=== PATIENT | female | born 1985 | race African-American/Black ===

== ENCOUNTER 2020-12-28 03:04 | Emergency (ER) | payer MEDICAID ==
[~2020-12-28] VITALS: Ht 170.2 cm; Wt 87.0 kg
[2020-12-28] MEDS ORDERED: FAMOTIDINE 20MG/2ML VIAL IV STA (03:20)
[2020-12-28] MEDS ORDERED: MAGNESIUM/ALUMINUM HYDROXIDE/SIMETHICONE 30ML UDC PO STA (03:20)
[2020-12-28] MEDS ORDERED: VISCOUS LIDOCAINE 2% 15 ML UDC PO STA (03:20)
[2020-12-28] MEDS ORDERED: ONDANSETRON HCL 4MG/2ML INJ IV STA (03:20)
[2020-12-28] MEDS ORDERED: SODIUM CHLORIDE 0.9% 1,000 ML IV ONE (03:30)
[2020-12-28 03:39] LABS: BASOPHILS % 0.2 % (0.0-2.0); HEMATOCRIT. 42.2 % (36.0-48.0); HEMOGLOBIN. 14.3 g/dL (12.0-16.0); LYMPHOCYTES % 25.1 % (20.0-50.0); MEAN CORPUSCULAR HEMOGLOBIN 30.5 pg (28.0-32.0); MEAN PLATELET VOLUME 7.9 fl (7.4-10.4); MONOCYTES % 2.3 % (2.0-8.0); NEUTROPHILS % 72.4 % (40.0-76.0); PLATELET 318 x1000/uL (130-400); RED BLOOD CELL COUNT 4.68 mill/uL (4.2-5.4); RED CELL DISTRIBUTION WIDTH 13.3 % (11.6-14.6)
[2020-12-28 03:41] LABS: CHLORIDE 111 mEq/L (98-107)
[2020-12-28 03:45] LABS: INR 1.1
[2020-12-28] MEDS ORDERED: MAG-55 MT (05:13)
[2020-12-28] MEDS ORDERED: FAMO-135 MT (05:13)
[2020-12-28 05:29] VITALS: BP 106/72
== END 2020-12-28 05:29 | disposition home or self-care (01) ==
LOC: ER 03:04
DX: K29.00 Acute gastritis without bleeding (principal); Z72.89 Other problems related to lifestyle
CPT/HCPCS: 36415; 80053; 83690; 85025; 85610; 96374; 96375; 99284; J2405; J3490; J7030